=== PATIENT | female | born 1950 | race Caucasian/White ===

== ENCOUNTER → 2019-11-23 10:26 | Outpatient (CLI) | payer MEDICARE, SELFPAY ==
--- NOTE | ~2019-11-23 | CT_ITS ---
EXAMINATION: CT abdomen pelvis wo/w con DATE: 11/23/2019 11:03 INDICATION: Kidney cancer; restaging TECHNIQUE: Computed tomography (CT) of the abdomen and pelvis was performed without and subsequently with 100 cc Omnipaque 350 intravenous contrast. Automated exposure control and iterative reconstructi on technique were employed. Exam dose: 620.25 mGy-cm total exam DLP. COMPARISON: 11/19/2018 CT abdomen pelvis FINDINGS: Right lower lobe calcified pulmonary granulomas and minimal hepatic and multiple calcified splenic granulomas, consistent with old granulomatous disease. Normal heart size. No pericardial or pleural effusion. There is mild prominence of the bile ducts, secondary to cholecystectomy. No hepatic, splenic, pancre atic, adrenal or renal mass lesion is evident. Status post partial nephrectomy the lower pole of the left kidney for history of renal cancer. No janet al space-occupying mass lesion is evident. There is a small nonobstructing lower pole right renal chris culus. No hydroureteronephrosis. There is atherosclerotic calcification of the abdominal aorta and iliac and femoral arteries but no a neurysm. No intraperitoneal or retroperitoneal or pelvic mass lesion or adenopathy or ascites is dete cted. The urinary bladder is unremarkable. Status post hysterectomy. There is a prominent amount of fecal material within the colon. No bowel obstruction or intraperitone al free air is detected. There is partial left nephrectomy at the lower pole of the left kidney. There is a small nonobstructing lower pole right renal calculus. Status post posterior fusion by pedicle screws and rods at L4-S1 and interbody spinal fusion and grad e 1 anterolisthesis at L5-S1. IMPRESSION: Status post partial left mastectomy for renal cancer; no recurrence or metastatic diseas e is evident Small nonobstructing lower pole right renal calculus Old granulomatous disease Status post cholecystectomy Status post hysterectomy Reviewed, dictated and finalized at [facility]. Reviewed, dictated and finalized at location B. IMPRESSION: Status post partial left mastectomy for renal cancer; no recurrenc e or metastatic disease is evident Small nonobstructing lower pole right renal calculus Old granulomatous disease Status post cholecystectomy Status post hysterectomy
--- NOTE | ~2019-11-23 | XR_ITS ---
XR chest 2V 11/23/2019 11:03 Indication: Renal cell carcinoma. Procedure: 2 view chest Comparison: Comparison to multiple prior studies sequentially, with oldest reviewed study dated 03/2016. Findings: Heart size normal. No focal air space disease, pulmonary edema, pleural effusion or suspect ed pneumothorax. Calcified granulomas right mid and lower thorax. Impression: 1: No acute cardiopulmonary disease. Reviewed, dictated and finalized at location A. Impression: 1: No acute cardiopulmonary disease.
[2019-11-23 10:50] LABS: Estimated Glomerular Filt Rate > 60
== END ==
PROVIDERS: PCP Internal Medicine; Visit Provider Urology
DX: C64.9 Malignant neoplasm of unspecified kidney, except renal pelvis (principal); N20.0 Calculus of kidney; Z90.49 Acquired absence of other specified parts of digestive tract
CPT/HCPCS: 36415; 71046; 74178; Q9967

== ENCOUNTER 2020-04-01 08:59 | Outpatient (CLI) | payer MEDICARE, SELFPAY ==
[2020-04-01 09:11] LABS: Basophils Absolute Auto 0.05 K/mm3 (0.00-0.10); Basophils Percent Auto 0.7 % (0.0-1.0); Eosinophils Absolute Auto 0.17 K/mm3 (0.02-0.50); Eosinophils Percent Auto 2.2 % (1.0-6.0); Hematocrit 44.8 % (35.0-42.0); Hemoglobin 14.3 g/dL (11.7-13.8); Immature Granulocyte Absolute 0.02 K/mm3 (0.00-0.00); Immature Granulocyte Percent A 0.3 % (0.0-0.0); Lymphocytes Absolute Auto 2.19 K/mm3 (1.10-4.50); Lymphocytes Percent Auto 28.7 % (18.0-42.0); Mean Corpuscular HGB Conc 31.9 g/dL (32.0-36.0); Mean Corpuscular Hemoglobin 29.7 pg (27.0-31.0); Mean Corpuscular Volume 92.9 fL (78.0-102.0); Mean Platelet Volume 10.3 fl (9.2-11.8); Monocytes Absolute Auto 0.66 K/mm3 (0.10-0.90); Monocytes Percent Auto 8.7 % (2.0-11.0); Neutrophils Absolute Auto 4.5 K/mm3 (1.7-7.2); Neutrophils Percent Auto 59.4 % (50.0-70.0); Platelet Count Result 229 K/mm3 (150-420); Red Blood Count 4.82 M/mm3 (4.20-5.40); Red Cell Distribution Width 12.3 % (11.6-14.4); White Blood Count 7.6 K/mm3 (4.8-10.8)
[2020-04-01 09:57] LABS: Alanine Aminotransferase 18 U/L (14-59); Albumin Level 4.2 g/dL (3.4-5.0); Alkaline Phosphatase 42 U/L (46-116); Anion Gap 12.2 mmol/L (7-16); Aspartate Amino Transferase 16 U/L (15-37); Bilirubin,Total 0.4 mg/dL (0.00-1.00); Blood Urea Nitrogen 13 mg/dL (7-18); Calcium 9.4 mg/dL (8.5-10.1); Carbon Dioxide 31 mmol/L (21-32); Chloride 104 mmol/L (98-108); Cholesterol 174 mg/dL (0-200); Estimated Glomerular Filt Rate 47; Free T4 Free Thyroxine 1.36 ng/dL (0.76-1.46); Glucose 98 mg/dL (70-99); HDL Direct 59 mg/dL (40-60); LDL Cholesterol Calculated 97 mg/dL (<130); Osmolality Calculated 294 mOsm/kg (285-295); Potassium 5.2 mmol/L (3.5-5.1); Sodium 142 mmol/L (136-145); Thyroid Stimulating Hormone 2.56 uIU/mL (0.36-3.74); Total Protein 6.9 g/dL (6.4-8.2); Triglycerides 91 mg/dL (0-150)
== END 2020-04-01 09:00 | disposition home or self-care (01) ==
LOC: CHSLAB 09:03
PROVIDERS: PCP Internal Medicine; Visit Provider Internal Medicine
DX: I10 Essential (primary) hypertension (principal)
CPT/HCPCS: 36415; 80053; 80061; 84439; 84443; 84481; 85025

== ENCOUNTER 2020-04-01 09:22 | Outpatient (CLI) | payer SELFPAY ==
--- NOTE | ~2020-04-01 | XR_ITS ---
XR lumbar spine 2-3V DATE: 04/01/2020 09:43 INDICATION: Chronic back pain TECHNIQUE: AP, lateral, coned lateral lumbosacral views COMPARISON: 09/29/2007 lumbar spine MRI examination FINDINGS: Interval bilateral posterior spinal fusion including bilateral pedicle screws at L4-S1 sinc e 09/29/2007. Interbody spinal fusion at L5-S1 is again noted. Grade 1 anterolisthesis at L5-S1 is again noted. No fracture or bone destruction is evident. The included lower thoracic and lumbar pedicles are intac t. The sacroiliac joints are unremarkable. IMPRESSION: Interval bilateral posterior spinal fusion including bilateral pedicle screws at L4-S1 si nce 09/29/2007 Interbody spinal fusion and grade 1 anterolisthesis at L5-S1 are again noted Reviewed, dictated and finalized at location A. IMPRESSION: Interval bilateral posterior spinal fusion including bilateral pedi monika screws at L4-S1 since 09/29/2007 Interbody spinal fusion and grade 1 anterolisthesis at L5-S1 are again noted
== END 2020-04-01 09:23 | disposition home or self-care (01) ==
PROVIDERS: PCP Family Medicine; Visit Provider Family Medicine
DX: M54.89 Other dorsalgia (principal)
CPT/HCPCS: 72100

== ENCOUNTER 2020-12-14 09:57 | Outpatient (CLI) | payer MEDICARE, SELFPAY ==
--- NOTE | 2020-12-14 12:10 | WPDPFTINT ---
PFT Interpretation This is a pulmonary function test with spirometry, plethysmography and diffusing capacity. The test was performed and results interpreted in accordance with the 2019 and 2005 ATS/ERS Task Force guidelines respectively using the Global Lung Function Initiative-2012 reference equations. Patient demonstrated good effort and cooperation. Reproducibility criteria were met. The quality of the pre bronchodilator spirometry maneuver was Grade B. Findings: Spirometry: The contour of the inspiratory and expiratory flow tracing are normal. The FVC is 2.77 L, 87% predicted. The FEV1 is 1.93 L, 79% predicted. The FEV1: FVC ratio 70%. Plethysmography: The total lung capacity is 5.61 L, 102% predicted. The functional residual capacity is 3.53 L, 112% predicted. The residual volume is 2.72 L, 117% predicted. Diffusing capacity: The absolute diffusion capacity is 12.6, 58% predicted. The diffusing capacity corrected for alveolar volume is 2.92, 70% predicted. Impression: The spirometry is normal without evidence of an obstructive abnormality. The lung volumes are normal. The absolute diffusing capacity is moderately decreased and normalizes when corrected for alveolar volume. There are no prior studies for comparison PFT Procedure Performed PFT Procedure Performed Plethysmography (Lung Vol) Diffusing Cap (DLCO) Spirometry w/o Bronchodil
== END 2020-12-14 09:58 | disposition home or self-care (01) ==
LOC: ANHPFT 09:59
PROVIDERS: PCP Internal Medicine; Visit Provider Internal Medicine
DX: J44.9 Chronic obstructive pulmonary disease, unspecified (principal)
CPT/HCPCS: 94375; 94726; 94729

== ENCOUNTER → 2021-01-18 09:33 | Outpatient (CLI) | payer MEDICARE, SELFPAY ==
--- NOTE | ~2021-01-18 | XR_ITS ---
EXAMINATION: XR chest 2V DATE: 01/18/2021 09:56 INDICATION: History of kidney cancer, prior tobacco use TECHNIQUE: PA and lateral views of the chest are obtained. COMPARISON: 11/23/2019 FINDINGS: The lungs are free of acute opacities. Calcified nodules of the right lung are consistent w ith old granulomatous disease. There is no pleural effusion or pneumothorax. The cardiomediastinal si lhouette is normal. There is mild thoracic spondylosis. Punctate calcifications of the left upper marco drant likely reflect healed granulomatous disease of the spleen. IMPRESSION: 1. No acute cardiopulmonary abnormality. Reviewed, dictated and finalized at location A.
== END ==
PROVIDERS: Visit Provider Urology
DX: C64.9 Malignant neoplasm of unspecified kidney, except renal pelvis (principal)
CPT/HCPCS: 71046

== ENCOUNTER → 2021-01-25 10:19 | Outpatient (CLI) | payer MEDICARE, SELFPAY ==
--- NOTE | ~2021-01-25 | CT_ITS ---
EXAMINATION: CT abdomen pelvis wo/w con DATE: 01/25/2021 11:09 INDICATION: Kidney cancer, status post partial left nephrectomy TECHNIQUE: Computed tomography (CT) of the abdomen and pelvis was performed without and subsequently with 100 cc Omnipaque 350 intravenous contrast. Automated exposure control and iterative reconstructi on technique were employed. Exam dose: 608.64 mGy-cm total exam DLP. COMPARISON: 12/03/2019 CT abdomen pelvis FINDINGS: 8.7 x 13 x 30 mm soft tissue opacity at the lateral right lung base adjacent a prominent ch ronic calcified right lower lobe pulmonary granuloma. Differential diagnosis includes primary lung ca ncer, metastatic lesion versus focal atelectasis//or consolidation. Consider PET/CT imaging. The lung bases are otherwise clear. Normal heart size. No pericardial or pleural effusion. Status post cholecystectomy. This likely accounts for mild prominence of the intrahepatic and extrahe patic bile ducts. No pancreatic duct dilatation. No hepatic, splenic, pancreatic, adrenal or renal space-occupying mass lesion is evident. Multiple ca lcified splenic granulomas. Left lower pole partial nephrectomy. Pinpoint lower pole right nonobstructing renal calculus. No renal mass lesion is evident. The urinary bladder is unremarkable. Status post hysterectomy. Abdominal aortic calcification; no abdominal aortic aneurysm. No intraperitoneal or retroperitoneal or pelvic mass lesion or adenopathy or ascites. Mild colonic diverticulosis There are some small and large bowel air-fluid levels suggesting possible enterocolitis. Status post posterior spinal fusion at L4-S1 interbody spinal fusion at L5-S1. There is grade 1 anter olisthesis at L5-S1. No suspicious osteolytic or osteoblastic lesions are noted. IMPRESSION: 8.7 x 13 x 30 mm soft tissue opacity of the lateral right lung base; diffusion diagnosis includes primary and metastatic lung malignancy versus atelectasis or consolidation. Consider PET/CT imaging Status post partial left nephrectomy for history of renal cancer Status post cholecystectomy Status post hysterectomy Pinpoint nonobstructing lower pole right renal calculus Reviewed, dictated and finalized at [facility]. Reviewed, dictated and finalized at location A. IMPRESSION: 8.7 x 13 x 30 mm soft tissue opacity of the lateral right lung bas e; diffusion diagnosis includes primary and metastatic lung malignancy versus a telectasis or consolidation. Consider PET/CT imaging Status post partial left nephrectomy for history of renal cancer Status post cholecystectomy Status post hysterectomy Pinpoint nonobstructing lower pole right renal calculus
[2021-01-25 10:54] LABS: Estimated Glomerular Filt Rate > 60
== END ==
PROVIDERS: PCP Internal Medicine; Visit Provider Urology
DX: C64.9 Malignant neoplasm of unspecified kidney, except renal pelvis (principal); K57.30 Diverticulosis of large intestine without perforation or abscess without bleeding; Z90.49 Acquired absence of other specified parts of digestive tract; Z90.5 Acquired absence of kidney
CPT/HCPCS: 74178; Q9967

== ENCOUNTER 2021-02-16 10:30 | Outpatient (CLI) | payer MEDICARE, SELFPAY ==
--- NOTE | ~2021-02-16 | PE_ITS ---
EXAMINATION: PET skull to mid thigh DATE: 02/16/2021 12:20 INDICATION: Abnormal CT with nodular opacity right lung base. TECHNIQUE: Blood glucose level was 86 mg/dL. 10.53 mCi of 18-fluorodeoxyglucose (18-FDG) was administ ered i.v. Low dose computed tomography (CT) images were acquired from the base of the brain to the pr oximal thighs for attenuation correction and anatomic localization. Positron emission tomography (PET ) images were acquired in the same distribution beginning 56 minutes after injection. Images includin g fused PET/CT images were reconstructed in axial, coronal, and sagittal planes. Automated exposure c ontrol technique was employed. The dose-length product was 305.08mGy-cm. COMPARISON: CT abdomen and pelvis dated 01/25/2021 FINDINGS: Head/neck: There is symmetric increased activity in the oral cavity, submandibular glands, laryngeal muscles an d ocular muscles without CT correlate, likely physiologic. Small focus of mild increased FDG uptake a t the right thyroid lobe with maximal SUV of 2.9. No pathologically enlarged cervical lymphadenopathy or other suspicious foci of increased FDG uptake in the visualized head or neck. Chest: Mild increased FDG uptake with maximal SUV of 3.2 associated with the oblong 2.5 x 1.5 x 1.2 cm nodul ar soft tissue density in the right lower lobe extending caudally from a large calcified nodule bladd er likely sequela of old granulomatous disease. No other suspicious pulmonary nodules, pneumonia, pul monary edema or pleural effusion. Heart size is normal. Small amount of scattered atherosclerotic cor onary artery calcification. No pericardial effusion. Thoracic aorta is normal in caliber. A few calci fied right hilar lymph nodes consistent with old granulomatous disease. No FDG avid or pathologically enlarged thoracic lymphadenopathy. Abdomen/pelvis/proximal thighs: Physiologic renal accumulation and excretion of FDG activity in the kidneys, bladder and along portio ns of ureters. Suture line and cortical scarring at the medial aspect of the lower pole of the left k idney likely representing the site of a prior partial nephrectomy for reported renal cell carcinoma. Normal degree and heterogenous pattern of increased uptake throughout the liver without radiologic co rrelate or dominant FDG avid lesion. Small hepatic calcification and multiple splenic calcifications consistent with old granulomatous disease. The gallbladder is not visualized and likely surgically ab sent. Pancreas and bilateral adrenal glands are normal. Mild uptake scattered throughout the bowels w ithout radiologic correlate, also likely physiologic. There is mild colonic diverticulosis with a sig moid predominance. There is no adjacent inflammatory change to suggest diverticulitis. No other abn ormal foci of increased FDG uptake or pathologically enlarged lymphadenopathy in the abdomen, pelvis or proximal thighs. Musculoskeletal: Postoperative changes of prior L5 laminectomy, partial L4 laminectomy, L4-S1 posterior spinal fusion with bilateral vertical gregorio and pedicle screw fixation and L5-S1 anterior spinal fusion with interbod y bone graft cage. Bone graft harvest site is seen at the right posterior iliac spine. No suspicious lytic, blastic or FDG avid bone lesions. IMPRESSION: 1. Mild increased FDG uptake associated with a 2.5 x 1.5 x 1.2 cm oblong nodular soft tissue density in the lateral basilar segment of the right lower lobe. Although this could represent inflammation as sociated with a bronchocele secondary to old granulomatous disease, malignancy cannot be excluded and would recommend CT-guided percutaneous biopsy for further evaluation. 2. Small focus of mild increased uptake at the right thyroid lobe and could consider thyroid ultrasou nd for further evaluation/risk stratification. Reviewed, dictated and final
[2021-02-16 10:56] LABS: Glucose Point of Care 86 mg/dl (65-105)
== END 2021-02-16 10:31 | disposition home or self-care (01) ==
PROVIDERS: PCP Internal Medicine; Visit Provider Internal Medicine
DX: R91.8 Other nonspecific abnormal finding of lung field (principal); Z51.81 Encounter for therapeutic drug level monitoring; Z79.899 Other long term (current) drug therapy
CPT/HCPCS: 78815; 82948; A9552

== ENCOUNTER → 2021-02-24 03:35 | Outpatient (CLI) | payer MEDICARE, SELFPAY ==
[2021-02-24 19:50] LABS: SARS-CoV-2 RNA PCR Negative
== END ==
PROVIDERS: PCP Internal Medicine; Visit Provider Internal Medicine
DX: Z01.812 Encounter for preprocedural laboratory examination (principal); Z20.822 Contact with and (suspected) exposure to COVID-19
CPT/HCPCS: C9803; U0003; U0005

== ENCOUNTER 2021-02-24 13:17 | Outpatient (CLI) | payer MEDICARE, SELFPAY ==
--- NOTE | ~2021-02-24 | US_ITS ---
US thyroid INDICATION: Thyroid nodule. Mild uptake noted in right thyroid gland on recent PET/CT examination. TECHNIQUE: Real-time sonographic images of the thyroid gland were obtained. COMPARISON: Pet/CT dated 02/16/2021 FINDINGS: The right thyroid lobe measures 2.8 x 1 x 0.9 cm. The left thyroid lobe measures 2.3 x 0.6 x 0.4 cm. Thyroid echotexture is heterogeneous. There is a small hyperechoic mass in the right thyro id lobe measuring 5 x 4 x 2 mm which is solid, hypoechoic, wider than tall, smooth margins and no def inite calcifications, TR 3.. Normal vascular flow is present. IMPRESSION: 1. 5 mm right thyroid mass, likely benign. 2: Diffusely atrophic thyroid gland. Reviewed, dictated and finalized at location B.
== END 2021-02-24 13:18 | disposition home or self-care (01) ==
PROVIDERS: PCP Internal Medicine; Visit Provider Internal Medicine
DX: E04.1 Nontoxic single thyroid nodule (principal)
CPT/HCPCS: 76536; C9803; U0003; U0005

== ENCOUNTER 2021-03-01 08:41 | Outpatient (CLI) | payer MEDICARE, SELFPAY ==
[2021-02-28 09:26] VITALS: BMI 28.6
[2021-03-01] VITALS (10 sets, daily range): BP systolic 117–151; BP diastolic 64–104; PULSE 63–79; RESP 19–20; O2SAT 100
--- NOTE | ~2021-03-01 | XR_ITS ---
EXAMINATION: XR chest 1V portable DATE: 03/01/2021 13:10 INDICATION: Status post percutaneous right lung biopsy TECHNIQUE: frontal view of the chest was obtained. COMPARISON: Chest radiograph dated 03/01/2021 at 11:56 AM FINDINGS: The biopsied right lower lobe nodule is visible at the right costophrenic angle. Couple calcified nod ules in the right lower lung, calcified right hilar lymph nodes and multiple splenic calcifications a re all consistent with old granulomatous disease. No other airspace opacities, pulmonary edema, pleur al effusion or pneumothorax. The cardiomediastinal silhouette is normal. Distal right clavicular oste otomy. IMPRESSION: 1. No pneumothorax, pleural effusion or other acute cardiopulmonary disease post percutaneous biopsy of an indeterminate right lower lobe nodule. Reviewed, dictated and finalized at location A. IMPRESSION: 1. No pneumothorax, pleural effusion or other acute cardiopulmonary disease pos t percutaneous biopsy of an indeterminate right lower lobe nodule.
--- NOTE | ~2021-03-01 | XR_ITS ---
EXAMINATION: XR chest 1V DATE: 03/01/2021 12:00 INDICATION: Right lung nodule post percutaneous biopsy TECHNIQUE: frontal view of the chest was obtained. COMPARISON: Chest radiograph dated 01/18/21 FINDINGS: Calcified nodules in the right lung along with calcified right hilar lymph nodes and multiple splenic calcifications, all consistent with old granulomatous disease. The biopsied nodule is nearly indisce rnible is a subtle nodular opacity near the right costophrenic angle. No pleural effusion or pneumoth orax. The cardiomediastinal silhouette is normal. Postoperative change of prior distal right clavicle osteotomy. IMPRESSION: 1. No pneumothorax, pleural effusion or other acute cardiopulmonary disease post BX scans biopsy of a right lower lobe nodule. Reviewed, dictated and finalized at location A. IMPRESSION: 1. No pneumothorax, pleural effusion or other acute cardiopulmonary disease pos t BX scans biopsy of a right lower lobe nodule.
--- NOTE | ~2021-03-01 | XR_ITS ---
XR chest 1V portable 03/01/2021 15:04 Indication: Post image guided lung biopsy. Evaluate for pneumothorax. Procedure: AP portable chest Comparison: 03/01/2021 Findings: Small right apical pneumothorax. Calcified granulomas right lung. Heart size normal. No foc al pneumonia, edema or effusion. Impression: 1: Small right apical pneumothorax. Reviewed, dictated and finalized at location A. Impression: 1: Small right apical pneumothorax.
--- NOTE | ~2021-03-01 | CT_ITS ---
EXAMINATION: CT biopsy lung w/imaging DATE: 03/01/2021 12:01 INDICATION: Right lower lobe nodule. TECHNIQUE: The procedure including the risks and benefits was discussed with the patient. Risks discu ssed included infection, approximately 1/20 risk of symptomatic hemorrhage beyond mild hemoptysis, ap proximately 1/3 risk of pneumothorax, and approximately 1/10 risk of pneumothorax severe enough to wa rrant chest tube placement. The patient understood the risks and agreed to proceed. The patient was p laced prone. The skin overlying the posterior right lower chest was prepped and draped in sterile fa shion. Anesthetic was administered with 1% lidocaine subcutaneously. A 19 gauge outer needle was ad vanced under CT guidance to the lesion of interest. A 20 gauge core biopsy needle was then used to ob tain 6 core biopsy specimens. The needle was removed and the entry site was cleaned and dressed. The re were no immediate complications. No pneumothorax on the postprocedure chest radiograph. The dose-l ength product was 163.89 mGy-cm. FINDINGS: CT images demonstrate the outer needle tip adjacent to an elongated right lower lobe nodule . The nodule measures 12 mm in maximal transaxial dimensions and extending 2.2 cm craniocaudally. IMPRESSION: 1. Successful CT-guided biopsy of a 2.2 x 1.2 cm right lower lobe nodule. Reviewed, dictated and finalized at location A.
[2021-03-01 09:17] LABS: Basophils Absolute Auto 0.1 K/mm3 (0.0-0.1); Basophils Percent Auto 0.8 % (0.2-1.2); Eosinophils Absolute Auto 0.2 K/mm3 (0-0.3); Eosinophils Percent Auto 2.6 % (0-4.4); Hemoglobin 14.2 g/dL (12.0-15.0); Immature Granulocyte Absolute 0.02 K/mm3 (0.00-0.031); Immature Granulocyte Percent A 0.3 % (0-0.5); Lymphocytes Absolute Auto 2.31 K/mm3 (0.9-3.2); Lymphocytes Percent Auto 37.2 % (18.3-44.2); Mean Corpuscular HGB Conc 30.9 g/dl (32-36); Mean Corpuscular Hemoglobin 28.7 pg (26-34); Mean Corpuscular Volume 93.1 fl (80-100); Mean Platelet Volume 10.1 fl (7.4-10.4); Monocytes Absolute Auto 0.6 K/mm3 (0.1-0.6); Monocytes Percent Auto 9.8 % (2.6-8.5); Neutrophils Absolute Auto 3.1 K/mm3 (1.3-6.7); Neutrophils Percent Auto 49.3 % (45.5-73.1); Platelet Count Result 215 k/mm3 (150-375); Red Blood Count 4.94 M/mm3 (4.2-5.4); Red Cell Distribution Width 12.6 % (11.5-14.5); White Blood Count 6.2 K/mm3 (4.5-10.0)
[2021-03-01 09:23] LABS: INR 0.9; Prothrombin Time 12.9 Seconds (11.1-14.7)
--- NOTE | 2021-03-01 16:21 | SUR.PHASEII ---
1610 - dr. mobley at bedside talking with pt and pt's family.
== END 2021-03-01 16:22 | disposition home or self-care (01) ==
PROVIDERS: Radiology Diagnostic Radiology; PCP Internal Medicine; Visit Provider Internal Medicine
DX: R91.8 Other nonspecific abnormal finding of lung field (principal)
CPT/HCPCS: 32408; 36415; 71045; 85025; 85610; 88305

== ENCOUNTER 2021-05-16 10:11 | Outpatient (CLI) | payer MEDICARE, SELFPAY | END 2021-05-16 10:12 | disposition home or self-care (01) | LOC: CHSLAB 10:15 | PROVIDERS: PCP Internal Medicine; Visit Provider Specialist | DX: C44.222 Squamous cell carcinoma of skin of right ear and external auricular canal (principal) | CPT/HCPCS: 88305 ==

== ENCOUNTER 2022-01-09 12:16 | Outpatient (CLI) | payer MEDICARE, SELFPAY ==
--- NOTE | ~2022-01-09 | DEXA_ITS ---
Bone Density Report Name: HAILE FALL Age: 71 Sex: Female Ethnicity: White Date of : 1950 Indication: postmenopausal; screening for osteoporosis; height loss; prior fracture; hysterectomy; Referring Provider: Sotero Alicea Study: Bone densitometry was performed. Exam Date: January 09, 2022 Accession number: [id number] Bone Density: Region BMD T-score Z-score Classification Femoral Neck (Left) 0.845 0.0 1.8 Normal Total Hip (Left) 0.934 -0.1 1.5 Normal Femoral Neck (Right) 0.817 -0.3 1.5 Normal Total Hip (Right) 0.874 -0.6 1.0 Normal Femoral Neck Mean 0.831 -0.2 1.7 Normal Total Hip Mean 0.904 -0.3 1.2 Normal World Health Organization criteria for BMD impression classify patients as: Normal (T-score at or above -1.0), Osteopenia (T-score between -1.0 and -2.5), or Osteoporosis (T-score at or below -2.5). 10-year Fracture Risk: FRAX not reported because: All T-scores for Spine Total, Hip Total, Femoral Neck at or above -1.0 Prior hip or vertebral fracture Clinical Information Provided by Patient: Have had a previous hip or vertebral fracture Has had a low trauma fracture Has used the following medications: HRT (i.e. estrogen/hormone therapy), Vitamin D Has the following medical conditions: Hysterectomy Patient maximum height was 67 Menopause Age: 51 No regular weight bearing exercise Drinks caffeinated beverages Onset of menses at age 13 Number of children 2 Impression: The patient has normal bone mass. The patient has risk factors, including: previous fracture. Discussion: INCREASED RISK OF FRACTURE DUE TO HISTORY OF FRACTURE. The patient's previous fracture puts the patient at high risk of a future fracture. In untreated patients, the risk of osteoporotic fracture increases approximately two-fold for each 1.0 SD decrease in T-score. Low bone density is not the only risk factor for fracture; also consider factors such as patient's age, frailty or poor health, risk of falling, risk of injury, previous osteoporotic fracture, family history of osteoporosis, cigarette smoking, low body weight, etc. Not everyone with a low trauma fracture has osteoporosis; osteomalacia and other metabolic bone disorders should also be considered. Patients who have osteoporosis should be evaluated for specific diseases and conditions (secondary causes) that may cause or contribute to bone loss and fracture risk. National Osteoporosis Foundation (NOF) recommends pharmacologic intervention for patients with a prior hip or vertebral fracture regardless of BMD T-score. The patient should follow a healthful lifestyle (good nutrition with adequate calcium and vitamin D, and appropriate weight-bearing exercise). Follow-Up: Consider a repeat BMD and Vertebral Fracture Assessment (VFA) exam in 2 years or
== END 2022-01-09 12:17 | disposition home or self-care (01) ==
LOC: CHSIMG 12:17
PROVIDERS: PCP Internal Medicine; Visit Provider Obstetrics & Gynecology
DX: Z78.0 Asymptomatic menopausal state (principal)
CPT/HCPCS: 77080

== ENCOUNTER → 2022-01-18 09:39 | Outpatient (CLI) | payer MEDICARE, SELFPAY ==
--- NOTE | ~2022-01-18 | CT_ITS ---
EXAMINATION: CT abdomen pelvis wo/w con DATE: 01/18/2022 10:23 INDICATION: Cancer of kidney, history of partial left nephrectomy TECHNIQUE: Computed tomography (CT) of the abdomen was performed without intravenous contrast. CT of the abdomen and pelvis was then performed with a total of 100 mL Omnipaque 350 intravenous contrast. The dose-length product (DLP) was 713.02 mGy-cm. Automated exposure control and iterative reconstruct ion technique were employed. COMPARISON: 01/25/2021 FINDINGS: Minimal dependent atelectasis is present in the lung bases. There is a stable calcified nod ule of the right lower lobe. The heart size is normal. The gallbladder is surgically absent. There is mild enlargement of the common bile duct and central intrahepatic ducts which is likely due to post cholecystectomy state. Punctate calcifications in an otherwise normal spleen likely represent healed granulomatous disease. There are changes of partial nephrectomy in the lower pole of the left kidney. No residual or recurrent mass is identified. No suspicious renal or urothelial lesion is identified. A large volume of colonic stool is present. No pathologically enlarged abdominal or pelvic lymph nod es are identified. There is no free intraperitoneal gas or evidence of bowel obstruction. There is ca lcified atherosclerosis of the aorta and many of the other arteries. Surgical changes are noted in th e lumbar spine. IMPRESSION: 1. Status post left partial nephrectomy without residual or recurrent mass identified. Reviewed, dictated and finalized at location B. IMPRESSION: 1. Status post left partial nephrectomy without residual or recurrent mass iden tified.
--- NOTE | ~2022-01-18 | XR_ITS ---
EXAMINATION: XR chest 2V DATE: 01/18/2022 10:03 INDICATION: Cancer of kidney. TECHNIQUE: Frontal and lateral views of the chest were obtained. COMPARISON: Chest single view 03/01/2021, CT abdomen and pelvis 01/18/2022 FINDINGS: Calcified right lung nodules are consistent with old granulomatous disease. No pleural effu declan or pneumothorax. The heart size is normal. IMPRESSION: 1. No acute cardiopulmonary disease. Reviewed, dictated and finalized at location A.
[2022-01-18 10:09] LABS: Estimated Glomerular Filt Rate > 60
== END ==
PROVIDERS: PCP Internal Medicine; Visit Provider Urology
DX: C64.9 Malignant neoplasm of unspecified kidney, except renal pelvis (principal)
CPT/HCPCS: 71046; 74178; Q9967

== ENCOUNTER 2022-03-20 11:33 | Outpatient (CLI) | payer MEDICARE, SELFPAY | END 2022-03-20 11:34 | disposition home or self-care (01) | LOC: CHSLAB 11:45 | PROVIDERS: PCP Internal Medicine; Visit Provider Specialist | DX: L81.4 Other melanin hyperpigmentation (principal) | CPT/HCPCS: 88305 ==

== ENCOUNTER 2022-10-07 19:32 | Observation (INO) | payer MEDICARE, SELFPAY ==
--- NOTE | ~2022-10-07 | XR_ITS ---
Supine and upright views of the abdomen Clinical history: Nausea and vomiting Findings: Bowel gas pattern is nonspecific. No evidence for obstruction or free air. Calcified spleni c granulomas are noted in the left upper quadrant. Posterior orthopedic fixation hardware is present extending from L4 through S1.. Impression: Nonspecific bowel gas pattern. Calcified splenic granulomas. Lower lumbar spine fixation hardware. Reviewed, dictated and finalized at [facility]. ARD OPERATOR Impression: Nonspecific bowel gas pattern. Calcified splenic granulomas. Lower lumbar spine fixation hardware.
--- NOTE | ~2022-10-07 | XR_ITS ---
Portable chest x-ray Comparison: 01/18/2022 Clinical History: Fever Findings: Stable calcified granulomas in the right lung. Lungs are otherwise clear, without consolid ation or pleural effusion. Cardiomediastinal silhouette is stable. Bones and soft tissues are unrema rkable. Impression: No acute abnormality. Stable calcified right lung granulomas. Reviewed, dictated and finalized at [facility]. ER OPERATOR Impression: No acute abnormality. Stable calcified right lung granulomas.
[2022-10-07 19:36] VITALS: BP 126/72; PULSE 92; RESP 20; TEMP 36.8; O2SAT 99
[2022-10-07] MEDS: SODIUM CHLORIDE 0.9% IV 1,000 ML 999 ML IV CONT ×2 (19:59→21:01)
[2022-10-07] MEDS: ONDANSETRON INJ 4 MG/2 ML VIAL IV PUSH ×2 (19:59→21:34)
[2022-10-07 20:04] LABS: Glucose Point of Care 151 mg/dl (65-105)
[2022-10-07 20:50] VITALS: BP 109/70; BP 114/90; PULSE 95; PULSE 99; RESP 20; O2SAT 99
[2022-10-07 20:52] VITALS: BP 114/90; PULSE 110
[2022-10-07 20:56] LABS: Basophils Absolute Auto 0.03 K/mm3 (0.00-0.10); Basophils Percent Auto 0.3 % (0.0-1.0); Eosinophils Absolute Auto 0.02 K/mm3 (0.02-0.50); Eosinophils Percent Auto 0.2 % (1.0-6.0); Hematocrit 41.6 % (35.0-42.0); Hemoglobin 13.2 g/dL (11.7-13.8); Immature Granulocyte Absolute 0.03 K/mm3 (0.00-0.00); Immature Granulocyte Percent A 0.3 % (0.0-0.0); Lymphocytes Absolute Auto 0.47 K/mm3 (1.10-4.50); Lymphocytes Percent Auto 5.2 % (18.0-42.0); Mean Corpuscular HGB Conc 31.7 g/dL (32.0-36.0); Mean Corpuscular Hemoglobin 29.3 pg (27.0-31.0); Mean Corpuscular Volume 92.2 fL (78.0-102.0); Mean Platelet Volume 10.7 fl (9.2-11.8); Monocytes Absolute Auto 0.57 K/mm3 (0.10-0.90); Monocytes Percent Auto 6.3 % (2.0-11.0); Neutrophils Percent Auto 87.7 % (50.0-70.0); Platelet Count Result 189 K/mm3 (150-420); Red Blood Count 4.51 M/mm3 (4.20-5.40); Red Cell Distribution Width 12.4 % (11.6-14.4); White Blood Count 9.1 K/mm3 (4.8-10.8)
--- NOTE | 2022-10-07 20:56 | ED.GENADULT ---
HPI - General Adult General Chief complaint: Nausea/Vomiting/Diarrhea Stated complaint: Nausea/Vomiting/Diarrhea Source: patient and family Mode of arrival: ambulatory Limitations: no limitations History of Present Illness HPI narrative: 72-year-old white female complains of nausea vomiting and diarrhea that started last night she thinks she ate some bad chicken she has never had this before. Loose watery stools x5 today and has vomited before coming to the emergency department. While she was on the toilet having diarrheal stool she passed out for a couple seconds without injury. She felt dizzy and shaky. Denies any chest pain headache shortness of breath. denies any fever problems voiding rash itching bleeding or bruising. Past medical history chronic back pain for which she takes tramadol 3 times a day kidney cancer had part of her kidney removed successfully to cure her cancer. This was 5 years ago. With thyroidism. Insomnia. .........No history heart lung liver disease peptic ulcer disease or skin disease........... Past surgical history: Cholecystectomy, 3 back surgeries Related Data Home Medications Medication Instructions Recorded Confirmed buspirone 10 mg tablet 10 mg PO BID 11/23/20 10/07/22 levothyroxine 88 mcg capsule 88 mcg PO DAILY 11/23/20 10/07/22 tramadol 100 mg capsule 100 mg PO DAILY 11/23/20 10/07/22 24h,extended release(25-75) zolpidem 10 mg tablet 5 mg PO HS 11/23/20 10/07/22 biotin 5 mg capsule 5 mg PO DAILY 01/03/22 10/07/22 cholecalciferol (vitamin D3) 50 50 mcg PO DAILY 01/03/22 10/07/22 mcg (2,000 unit) capsule cyanocobalamin (vitamin B-12) 1,000 mcg PO DAILY 01/03/22 10/07/22 1,000 mcg capsule Allergies Allergy/AdvReac Type Severity Reaction Status Date / Time meperidine Allergy Unknown NAUSEA/VOMI Verified 06/20/22 13:17 TING morphine Allergy Unknown NAUSEA/VOMI Verified 06/20/22 13:17 TING Review of Systems Constitutional: Constitutional: Reports no additional constitutional complaints, Denies chills, Denies fatigue, Denies fever(s) and Denies weakness Eyes: Eyes: Reports no additional eye complaints ENT: Reports system reviewed and no additional complaints, except as documented Cardiovascular: Cardiovascular: Reports as per HPI, Reports no additional cardiovascular complaints and Denies chest pain Respiratory: Respiratory: Reports as per HPI, Reports no additional respiratory complaints, Denies chest congestion, Denies cough, Denies dyspnea and Denies wheezing Gastrointestinal: Gastrointestinal: Reports as per HPI and Reports no additional gastrointestinal complaints Genitourinary: Genitourinary: Reports no additional female genitourinary complaints and Reports as per HPI Musculoskeletal: Musculoskeletal: Reports no additional musculoskeletal complaints Integumentary/Breasts: Skin/Breast: Reports system reviewed and no additional complaints, except as docu and Denies rash Neurologic: Reports system reviewed and no additional complaints, except as documented, Reports as per HPI, Denies confusion, Reports dizziness, Reports syncope, Denies headache(s), Denies focal weakness, Denies numbness and Denies weakness Endocrine: Endocrine: Reports no additional endocrine complaints Hematologic/Lymphatic: Hematologic/Lymphatic: Reports no additional hematologic/lymphatic complaints Allergic/Immunologic: Allergic/Immunologic: Reports no additional allergic/immunologic complaints [facility] Past Medical History Medical History History of vaginal delivery x 2 Irritable bowel Renal cell cancer Thyroid disease Surgical History Surgical History History of abdominal hysterectomy History of appendectomy History of back surgery x 3 History of cholecystectomy History of partial nephrectomy left History of shoulder surgery Family History Family History
[2022-10-07 21:00] VITALS: BP 116/49; PULSE 90; RESP 20; O2SAT 96
[2022-10-07 21:12] LABS: Alanine Aminotransferase 11 U/L (14-59); Albumin Level 3.6 g/dL (3.4-5.0); Alkaline Phosphatase 51 U/L (46-116); Anion Gap 13 mmol/L (8-16); Aspartate Amino Transferase 17 U/L (15-37); Bilirubin,Total 0.6 mg/dL (0.00-1.00); Blood Urea Nitrogen 18 mg/dL (7-18); Calcium 8.4 mg/dL (8.5-10.1); Carbon Dioxide 25 mmol/L (21-32); Chloride 106 mmol/L (98-108); Estimated CRCL calculation 44 ml/min; Estimated Glomerular Filt Rate 53; Glucose 133 mg/dL (70-99); Lipase 28 U/L (16-77); Osmolality Calculated 301 mOsm/kg (285-295); Potassium 3.7 mmol/L (3.5-5.1); Sodium 144 mmol/L (136-145); Total Protein 6.5 g/dL (6.4-8.2)
[2022-10-07 21:30] VITALS: BP 142/95; PULSE 87; RESP 20; O2SAT 97
[2022-10-07 21:31] LABS: Thyroid Stimulating Hormone 1.96 uIU/mL (0.36-3.74)
[2022-10-07 21:33] LABS: Influenza A QL RT-PCR Negative (Negative); Influenza B QL RT-PCR Negative (Negative); SARS-CoV-2 RNA PCR Negative (Negative)
[2022-10-07 21:41] LABS: RSV RNA, RT-PCR Negative (Negative)
[2022-10-07 21:45] LABS: Add Urine Microscopic? YES; Bilirubin Urine Negative (Negative); Blood Urine Negative (Negative); Color Urine Light Yellow (Yellow); Glucose Urine UA Negative (Negative); Ketones Urine 1+ (Negative); Leukocyte Esterase Ur Trace LEU/UL (Negative); Nitrate Urine Negative (Negative); Protein Urine Negative (Negative); Specific Grav Ur 1.025 (1.010-1.020); Urobilinogen Urine 0.2 mg/dL (0.2-1.0)
[2022-10-07 22:02] LABS: Appearance Urine Slightly Cloudy (Clear); WBC Urine 0-3 /hpf (0-3)
[2022-10-07 22:03] LABS: Amorphous Sediment Urine Few; Mucus Urine Heavy /lpf; Uric Acid Crystals Urine Many /hpf
--- NOTE | 2022-10-07 22:48 | PC.NURSE ---
Pt resting on side, VSS, ERP DR Chandler talked c pt about lab results and UA. POC for admission discussed. Call placed to LOUISA Flores for Dr Chandler to discuss admission.
[2022-10-08] MEDS: KCL 20MEQ/0.9% SOD CHL 1,000 ML 120 ML IV CONT (00:39)
[2022-10-08 01:11] VITALS: BMI 22.6
--- NOTE | 2022-10-08 01:27 | PC.NURSE ---
Patient admitted to room 209 from the ER, is alert and oriented times 4, oriented to room and call light.
[2022-10-08 01:30] VITALS: BP 138/65; PULSE 95; RESP 14; TEMP 38.1; O2SAT 96
[2022-10-08 01:39] VITALS: TEMP 38.1
[2022-10-08] MEDS: ACETAMINOPHEN 325 MG TABLET 650 MG PO (01:39)
[2022-10-08] MEDS: ZOLPIDEM TARTRATE (*CRX) 5 MG TABLET 10 MG PO (01:40)
[2022-10-08 02:51] VITALS: TEMP 37.2
[2022-10-08 06:07] LABS: Hematocrit 36.7 % (35.0-42.0); Hemoglobin 11.7 g/dL (11.7-13.8); Mean Corpuscular HGB Conc 31.9 g/dL (32.0-36.0); Mean Corpuscular Hemoglobin 29.1 pg (27.0-31.0); Mean Corpuscular Volume 91.3 fL (78.0-102.0); Mean Platelet Volume 10.2 fl (9.2-11.8); Platelet Count Result 172 K/mm3 (150-420); Red Blood Count 4.02 M/mm3 (4.20-5.40); Red Cell Distribution Width 12.6 % (11.6-14.4); White Blood Count 5.9 K/mm3 (4.8-10.8)
[2022-10-08] MEDS: LEVOTHYROXINE SODIUM 88 MCG TABLET PO (06:07)
[2022-10-08 06:19] LABS: Anion Gap 7 mmol/L (8-16); Blood Urea Nitrogen 11 mg/dL (7-18); Calcium 7.9 mg/dL (8.5-10.1); Carbon Dioxide 26 mmol/L (21-32); Chloride 112 mmol/L (98-108); Estimated CRCL calculation 48 ml/min; Estimated Glomerular Filt Rate > 60; Glucose 96 mg/dL (70-99); Osmolality Calculated 299 mOsm/kg (285-295); Potassium 3.7 mmol/L (3.5-5.1); Sodium 145 mmol/L (136-145)
[2022-10-08 08:00] VITALS: BP 140/65; PULSE 96; RESP 16; TEMP 37.2; O2SAT 96
[2022-10-08] MEDS: CHOLECALCIFEROL 1,000 UNITS TABLET 2000 UNITS PO (08:51)
[2022-10-08] MEDS: busPIRone HCL 5 MG TABLET 10 MG PO (08:52)
[2022-10-08] MEDS: CYANOCOBALAMIN 1,000 MCG TABLET 1000 MCG PO (08:52)
[2022-10-08] MEDS: SODIUM CHLORIDE 0.9% IV 1,000 ML 75 ML IV CONT (08:57)
--- NOTE | 2022-10-08 10:59 | PM.SD2 ---
Same Day Admit/Disch: HPI History of Present Illness Chief complaint: dehydration/gastroenteritis Narrative: Ivanna Munoz is a 72 year old female History of Present Illness HPI narrative: ? 72-year-old white female complains of nausea vomiting and diarrhea that started last night she thinks she ate some bad chicken she has never had this before.? Loose watery stools x5 today and has vomited before coming to the emergency department.? While she was on the toilet having diarrheal stool she passed out for a couple seconds without injury.? She felt dizzy and shaky.? Denies any chest pain headache shortness of breath.? ? denies any fever problems voiding rash itching bleeding or bruising. ? Past medical history chronic back pain for which she takes tramadol 3 times a day kidney cancer had part of her kidney removed successfully to cure her cancer.? This was 5 years ago.? With thyroidism.? Insomnia. .........No history? heart lung liver disease peptic ulcer disease or skin disease........... Past surgical history: Cholecystectomy, 3 back surgeries [facility] Past Medical History Medical History History of vaginal delivery x 2 Irritable bowel Renal cell cancer Thyroid disease Surgical History Surgical History History of abdominal hysterectomy History of appendectomy History of back surgery x 3 History of cholecystectomy History of partial nephrectomy left History of shoulder surgery Family History Family History Father Family history of lung cancer Mother Family history of lung cancer Social History Social History Smoking status: Never smoker Second hand tobacco smoke exposure: No Smoking end date: 09/16/87 Alcohol intake: never Substance use: never Substance use type: does not use Lack of Transportation: No Lack of Food: Never True Current Housing: I Have Housing Concerned About Future Housing: No Difficulty Paying Gas/Electric Bills: No Difficulty Paying for Meds: No Currently Unemployed: No Education: High School Diploma/GED Difficulty w/ Childcare or Family Care: No Living arrangements: with family Spiritual care concerns: No Same Day Admit/Disch: Med Pre-admit Medications Home Medications Medication Instructions Recorded Confirmed Type buspirone 10 mg tablet 10 mg PO BID 11/23/20 10/07/22 History levothyroxine 88 mcg capsule 88 mcg PO DAILY 11/23/20 10/07/22 History tramadol 100 mg capsule 100 mg PO DAILY 11/23/20 10/07/22 History 24h,extended release(25-75) zolpidem 10 mg tablet 5 mg PO HS 11/23/20 10/07/22 History biotin 5 mg capsule 5 mg PO DAILY 01/03/22 10/07/22 History cholecalciferol (vitamin D3) 50 50 mcg PO DAILY 01/03/22 10/07/22 History mcg (2,000 unit) capsule cyanocobalamin (vitamin B-12) 1,000 mcg PO DAILY 01/03/22 10/07/22 History 1,000 mcg capsule ciprofloxacin HCl 500 mg tablet 500 mg PO Q12H #10 tabs 10/08/22 Rx (Cipro) ondansetron 4 mg disintegrating 4 mg PO Q8H PRN nausea and 10/08/22 Rx tablet vomiting #10 tabs Exam Narrative: GENERAL:Well-appearing, well-nourished, and in no acute distress. HEAD:Normocephalic, atraumatic. EYES: PERRLA and EOMI. ENT: Nares clear, no rhinorrhea or epistaxis. Mucous membranes moist. NECK: Supple. CHEST: Clear to auscultation. No respiratory distress. HEART: Regular rate and rhythm. No murmur heard. Normal peripheral pulses. ABDOMEN: Soft, nontender, nondistended, normal active bowel sounds. EXTREMITIES: Normal range of motion. No edema. SKIN: Warm, dry, no rash. NEURO: No focal deficits. Alert and oriented x3. DS: Data Data Completed and Pending Labs on day of discharge: Labs from last 24 hours 10/08/22 10/08/22 10/07/22 05:50 05:50 21:15 WBC 5.9 RBC
[2022-10-08] MEDS: CIPROFLOXACIN 400 MG/D5W 200ML 200 ML 200 MG IVPB (11:55)
--- NOTE | 2022-10-08 13:48 | PC.NURSE ---
Pt discharged to home. VSS. Pt and spouse instructed regarding pt ABX: Ciprofloxin and antiemetic Zofran. Pt instructed to continue to push fluids. If pt runs a temperature of 100 or higher, if the diarhea comes back then she needs to call her PCP or come trina to the ER. Pt verbalized understanding. Pt taken to family car in and assisted into the car.
--- NOTE | 2022-10-09 09:17 | PC.NURSE ---
Pt states she received and understood her discharge instructions. Pt also states everybody was so nice .
[2022-10-10 15:33] LABS: Glucose Point of Care 107 mg/dl (65-105)
== END 2022-10-08 13:40 | disposition home or self-care (01) ==
LOC: CHSED 22:52 → CHS2ND 10-08 06:36
PROVIDERS: Nurse Practitioner Family; Admitting Provider Internal Medicine; Emergency Provider Emergency Medicine; PCP Internal Medicine; Visit Provider Internal Medicine
DX: E86.0 Dehydration (principal); K52.9 Noninfective gastroenteritis and colitis, unspecified; M54.9 Dorsalgia, unspecified; G89.29 Other chronic pain; Z20.822 Contact with and (suspected) exposure to COVID-19; Z85.528 Personal history of other malignant neoplasm of kidney; Z90.49 Acquired absence of other specified parts of digestive tract; Z87.891 Personal history of nicotine dependence; N39.0 Urinary tract infection, site not specified
CPT/HCPCS: 36415; 71045; 74018; 80048; 80053; 81001; 82948; 83690; 84443; 85025; 85027; 87637; 96361; 96365; 96366; 96367; 96375; 96376; 97161; 97165; 99285; A9270; G0378; J0744; J2405; J3480; J7030

== ENCOUNTER 2022-10-23 13:20 | Outpatient (CLI) | payer MEDICARE, SELFPAY | END 2022-10-23 13:21 | disposition home or self-care (01) | LOC: CHSLAB 13:23 | PROVIDERS: PCP Internal Medicine; Visit Provider Specialist | DX: C44.622 Squamous cell carcinoma of skin of right upper limb, including shoulder (principal) | CPT/HCPCS: 88305 ==

== ENCOUNTER → 2023-01-18 08:31 | Outpatient (CLI) | payer MEDICARE, SELFPAY ==
--- NOTE | ~2023-01-18 | CT_ITS ---
EXAMINATION: CT abdomen wo/w con DATE: 01/18/2023 09:10 INDICATION: Cancer of kidney post partial left nephrectomy TECHNIQUE: Computed tomography (CT) of the abdomen was performed with 100 mL Omnipaque-350 intravenou s contrast. Automated exposure control and iterative reconstruction technique were employed. The dose -length product was 418.40 mGy-cm. COMPARISON: 01/18/2022 and 01/24/2017 FINDINGS: No interval change in a chronic elongated soft tissue density nodule extending peripherally from a pr ominent calcified granuloma in the right lower lobe with prior biopsy of the pulmonary nodule demonst rating focal chronic pneumonitis with no evidence of neoplasm. Heart size is normal. No pericardial o r pleural effusion. There are a few hepatic and larger and more numerous splenic calcifications also consistent with old granulomatous disease. There is chronic mild intra and extra hepatic biliary duct al dilation likely related to prior cholecystectomy with surgical clips at the gallbladder fossa. Figueroa creas and bilateral adrenal glands are normal. 1 mm nonobstructing stone at a lower pole calyx of the right kidney with adjacent mild chronic cortical scarring. More prominent scarring and suture line a t the inferior pole of the left kidney consistent with prior partial left nephrectomy for reported re nal cell carcinoma. No evident residual or recurrent disease. There is unchanged chronic mild bilater al hydronephrosis without hydroureter. Visualized portion of the bowels are unremarkable. No patholog ically enlarged abdominal lymphadenopathy. Surgical clips along the anterior left pelvic wall. Postop erative changes in the lower lumbar spine including L5 laminectomy, partial L4 laminectomy with L4-S1 posterior spinal fusion with bilateral vertical gregorio and pedicle screw fixation and L5-S1 anterior sp inal fusion with interbody bone graft cage. Bone graft harvest sites at the bilateral posterior iliac spines. IMPRESSION: 1. Postoperative change of prior left nephrectomy for reported renal cell carcinoma with no evident r esidual, recurrent or metastatic disease. 2. Nonobstructing 1 mm stone at the lower pole of the right kidney. 3. Chronic mild bilateral hydronephrosis without interval change dating back to 2016. 4. Chronic intra and extra hepatic biliary ductal dilation likely related to prior cholecystectomy. Reviewed, dictated and finalized at location B. IMPRESSION: 1. Postoperative change of prior left nephrectomy for reported renal cell carci noma with no evident residual, recurrent or metastatic disease. 2. Nonobstructing 1 mm stone at the lower pole of the right kidney. 3. Chronic mild bilateral hydronephrosis without interval change dating back to 2017. 4. Chronic intra and extra hepatic biliary ductal dilation likely related to pr ior cholecystectomy.
--- NOTE | ~2023-01-18 | XR_ITS ---
Clinical Indication: Renal cancer PA and lateral views of the chest: Comparison: 10/08/2022 Findings: Stable calcified pulmonary nodules are present. No other pulmonary nodule or abnormality se en.. Cardiomediastinal silhouette is within normal limits. Osseous structures are intact. Calcified granulomas of the spleen noted. Impression: Evidence of prior granulomatous disease. No other significant findings. Reviewed, dictated and finalized at location . Impression: Evidence of prior granulomatous disease. No other significant findings.
[2023-01-18 08:57] LABS: Estimated Glomerular Filt Rate > 60
== END ==
PROVIDERS: PCP Internal Medicine; Visit Provider Urology
DX: C64.9 Malignant neoplasm of unspecified kidney, except renal pelvis (principal); N20.0 Calculus of kidney
CPT/HCPCS: 71046; 74170; Q9967

== ENCOUNTER 2023-11-15 13:31 | Outpatient (RCR) | payer MEDICARE, SELFPAY ==
--- NOTE | 2023-11-15 15:11 | OPREHPOC ---
Outpatient Therapy Plan of Care This is a Multidisciplinary Plan of Care that may contain components documented by all disciplines (PT, OT, and ST.) PT Problem 1 PT Problem #1 Knowledge Deficit PT Goal 1 Goal Patient to demonstrate independence with HEP Target Visit 2 PT Problem 2 PT Problem #2 Pain PT Goal 1 Goal 1. Patient to report highest pain at 2/10 2. patient to report ability to complete house hold tasks with no increase in pain Target Visit 9 PT Problem 3 PT Problem #3 Impaired Range of Motion PT Goal 1 Goal 1. Patient to demonstrate 60 deg of B cervical ROM to return to driving without limitation 2. Patient to demonstrate 160 deg of B shoulder flexion to return to reaching into cabinets at PLOF Target Visit 9 PT Problem 4 PT Problem #4 Impaired Strength PT Goal 1 Goal patient to demonstrate 4+/5 B UE strength to return to house hold tasks at PLOF Target Visit 9 PT Problem 5 PT Problem #5 Impaired Functional Mobil PT Goal 1 Goal 1. Patient to report ability to read for >30 min with no increase in neck pain 2. Patient to demonstrate less than 20% disability on NDI 3. Patient to report ability to sit for >1 hour with no neck pain Target Visit 9
--- NOTE | 2023-11-15 15:11 | PTOPEVAL1 ---
Assessment and note entered by Tomeka Osborne DPT Evaluation Information Assessment Status Evaluation Diagnosis neck pain, B shoulder pain, upper back pain Subjective Information patient reports that she has had chronic pain in the neck, shoulders and upper back that has worsened over the last month. She reports that prior ice and heat would decrease pain but that is not helping now. She reports pain is present while sitting, turning her head to driving, lifting her UE's, and looking down to read. She denies headaches or numbness. Patient is retired. She is getting an x-ray following PT evaluation today. Reported Pain Level Pain Score 5,4,5: Self Report Assessment PT Clinical Summary Mrs. Munoz is a 73 year old female who presents to PT with neck, B shoulder and mid back pain. She demonstrates decreased cervical ROM, decreased UE strength and ROM and impaired posture limiting her ability to read, turn her head to drive and sit for prolonged periods of time. She would benefit from skilled PT to address impairments and return to PLOF. Plan of Care Interventions Electrical Stimulation,Gait Training,Hot Pack/Cold Pack,Manual Therapy,Mechanical Traction,Neuro Re- education,Patient/Caregiver Educati,Therapeutic Activities,Therapeutic Exercise PT Services Indicated Yes Treatment Frequency and 3x weekly for 9 visits Duration These treatments will address the objective and functional deficits as defined above. The patient will be advanced safely and appropriately in order for the patient to progress towards his/her prior level of function. Additional exercises will be introduced and as well as a comprehensive home exercise program upon discharge, if needed, ?to ensure carryover of functional gains achieved in the clinic. This treatment plan has been reviewed and agreement upon by the patient.
--- NOTE | 2023-12-09 13:35 | OPREHPOC ---
Outpatient Therapy Plan of Care This is a Multidisciplinary Plan of Care that may contain components documented by all disciplines (PT, OT, and ST.) PT Problem 1 PT Problem #1 Knowledge Deficit PT Goal 1 Goal Patient to demonstrate independence with HEP Target Visit 2 Progress Met PT Problem 2 PT Problem #2 Pain PT Goal 1 Goal 1. Patient to report highest pain at 2/10 2. patient to report ability to complete house hold tasks with no increase in pain Target Visit 9 Progress Not Met PT Problem 3 PT Problem #3 Impaired Range of Motion PT Goal 1 Goal 1. Patient to demonstrate 60 deg of B cervical ROM to return to driving without limitation 2. Patient to demonstrate 160 deg of B shoulder flexion to return to reaching into cabinets at PLOF Target Visit 9 Progress Not Met PT Problem 4 PT Problem #4 Impaired Strength PT Goal 1 Goal patient to demonstrate 4+/5 B UE strength to return to house hold tasks at PLOF Target Visit 9 Progress Not Met PT Problem 5 PT Problem #5 Impaired Functional Mobil PT Goal 1 Goal 1. Patient to report ability to read for >30 min with no increase in neck pain 2. Patient to demonstrate less than 20% disability on NDI 3. Patient to report ability to sit for >1 hour with no neck pain Target Visit 9 Progress Not Met
--- NOTE | 2023-12-09 13:35 | PTOPDC ---
Assessment and note entered by Tomeka Leger DPT Evaluation Information Assessment Status Discharge Diagnosis neck pain, B shoulder pain, upper back pain Onset 11/11/23 Subjective Information patient reports that her neck pain has improved since start of PT. she reports she is now able to turn her head when driving. she reports that lifting her arms above her head has improved. She continues to have difficulty with looking down to read. she reports she has been doing her HEP. she did have an MRI on 12/07/23. Reported Pain Level Pain Score 3,2,3: Self Report Assessment PT Clinical Summary Mrs. Munoz was seen for 9 visits of skilled PT with good progression towards goals. She did not meet all goals but did demonstrate improved cervical ROM, improve UE strength and improved UE ROM with improved ability to drive and complete house hold tasks. She is independent with HEP and is agreeable to DC at this time. Plan of Care PT Services Indicated No
== END 2023-12-09 13:44 | disposition home or self-care (01) ==
LOC: CHSPT 13:31
PROVIDERS: PCP Family Medicine; Visit Provider Registered Nurse
DX: M54.2 Cervicalgia (principal)
CPT/HCPCS: 97014; 97110; 97140; 97150; 97161; G0283

== ENCOUNTER 2023-11-15 15:06 | Outpatient (CLI) | payer MEDICARE, SELFPAY ==
--- NOTE | ~2023-11-15 | XR_ITS ---
EXAMINATION: XR thoracic spine 3V DATE: 11/15/2023 15:32 INDICATION: Back pain. TECHNIQUE: 3 views of thoracic spine on 4 radiographs were obtained. COMPARISON: Chest 2 views 01/18/2023 FINDINGS: There is 5 degrees dextrocurvature of thoracic spine. Vertebral body heights are normal. Th ere is mildly decreased disc height at multiple levels. There are endplate osteophytes at many levels . Calcified pulmonary nodules and splenic calcifications are consistent with old granulomatous diseas e. IMPRESSION: 1. Mild thoracic spondylosis. Reviewed, dictated and finalized at location A. NING STAFF SUPERVISOR
--- NOTE | ~2023-11-15 | XR_ITS ---
EXAMINATION: XR_CERV2-3V_CR DATE: 11/15/2023 15:32 INDICATION: Acute neck pain. TECHNIQUE: 4 views of cervical spine on 5 radiographs were obtained. COMPARISON: None. FINDINGS: There is kyphosis of cervical spine. There is 2 mm retrolisthesis of C4 on C5, C5 on C6, an d C6 on C7. There is mild chronic anterior wedging of C6 vertebral body. There is moderately decrease d disc height at C3-C4 and C4-C5 and severely decreased disc height at C5-C6 and C6-C7. There is mult ilevel uncovertebral joint osteoarthritis, severe bilaterally from C4-C5 through C6-C7. There is mult ilevel facet joint osteoarthritis, severe at several levels. There is mild central canal stenosis at C4-C5, C5-C6, and C6-C7. No prevertebral soft tissue swelling. IMPRESSION: 1. Severe cervical spondylosis. Reviewed, dictated and finalized at location A. E M ASSEMBLER
== END 2023-11-15 15:07 | disposition home or self-care (01) ==
LOC: CHSIMG 15:09
PROVIDERS: PCP Family Medicine; Visit Provider Family Medicine
DX: M54.6 Pain in thoracic spine (principal); M54.2 Cervicalgia; M43.02 Spondylolysis, cervical region; M43.04 Spondylolysis, thoracic region
CPT/HCPCS: 72040; 72072

== ENCOUNTER 2023-12-07 08:18 | Outpatient (CLI) | payer MEDICARE, SELFPAY ==
--- NOTE | ~2023-12-07 | MR_ITS ---
EXAMINATION: MR cervical spine wo con DATE: 12/07/2023 10:40 INDICATION: Cervical spondylosis. TECHNIQUE: Magnetic resonance imaging (MRI) of the cervical spine was performed without intravenous c ontrast. Sequences included sagittal T2-weighted FSE, sagittal T2-weighted FS FSE, sagittal T1-weight ed FSE, axial MERGE, and axial T2-weighted FSE. COMPARISON: Cervical spine radiographs 11/15/2023 FINDINGS: There is kyphosis of cervical spine. There is mild chronic anterior wedging of C5, C6, and C7 vertebral bodies. There is moderately decreased disc height at C3-C4 and C4-C5 and severely decrea sed disc height at C5-C6 and C6-C7. The spinal cord signal intensity is normal. There is an empty porfirio la. The following disc levels are specifically discussed: C2-C3: The disc does not extend beyond the endplate margin. There is no uncovertebral joint osteoarth ritis. There is mild right facet joint osteoarthritis. There is ankylosis of left facet joint with mi ld hypertrophy. There is mild left neural foraminal stenosis. There is no central canal stenosis. C3-C4: The disc does not extend beyond the endplate margin. There is mild bilateral uncovertebral walter nt osteoarthritis. There is mild right facet joint osteoarthritis. There is ankylosis of left facet j oint with mild hypertrophy. There is mild left neural foraminal stenosis. There is no central canal s tenosis. C4-C5: The disc is bulging. There is moderate right and severe left uncovertebral joint osteoarthriti s. There is mild right and moderate left facet joint osteoarthritis. There is mild left neural forami nal stenosis. There is mild central canal stenosis with ventral indentation of the spinal cord. C5-C6: The disc is bulging. There is severe bilateral uncovertebral joint osteoarthritis. There is mi ld bilateral facet joint osteoarthritis. There is mild bilateral neural foraminal stenosis. There is mild central canal stenosis with ventral indentation of the spinal cord. C6-C7: The disc is bulging. There is severe bilateral uncovertebral joint osteoarthritis. There is mi ld bilateral facet joint osteoarthritis. There is moderate bilateral neural foraminal stenosis. There is mild central canal stenosis with ventral indentation of the spinal cord. C7-T1: There is a central protrusion. There is mild left uncovertebral joint osteoarthritis. There is severe bilateral facet joint osteoarthritis. There is mild bilateral neural foraminal stenosis. Ther e is no central canal stenosis. IMPRESSION: 1. Severe cervical spondylosis. Reviewed, dictated and finalized at location E.
== END 2023-12-07 08:19 | disposition home or self-care (01) ==
LOC: CHSIMG 08:21
PROVIDERS: PCP Family Medicine; Visit Provider Family Medicine
DX: M47.812 Spondylosis without myelopathy or radiculopathy, cervical region (principal)
CPT/HCPCS: 72141

== ENCOUNTER 2024-01-30 09:16 | Outpatient (CLI) | payer MEDICARE, SELFPAY ==
--- NOTE | ~2024-01-30 | XR_ITS ---
Clinical Indication: Renal mass, annual checkup PA and lateral views of the chest: Comparison: 01/18/2023 Findings: Stable calcified granulomas are present. The lungs are otherwise clear, without evidence of focal consolidation or pleural effusion. Cardiomediastinal silhouette is within normal limits. Bone s and soft tissues are unremarkable. Impression: No evidence of metastatic disease. Stable calcified granulomas. Reviewed, dictated and finalized at location M. Impression: No evidence of metastatic disease. Stable calcified granulomas.
--- NOTE | ~2024-01-30 | CT_ITS ---
CT of the Abdomen and Pelvis: Indication: Renal mass Technique: 2.5 mm axial scans were obtained through the abdomen and pelvis prior to and following in travenous administration of 100 cc of Omnipaque 350. Dose reduction technique was used on this scan b y utilizing automated exposure control and iterative reconstruction technique. The dose-length produc t (DLP) was 659.49 mGy-cm. COMPARISON: 01/18/2023 Findings: Scans through the lung bases demonstrates stable calcified right basilar granuloma. The liver, pancreas, and adrenal glands are within normal limits. Splenic calcified granulomas are pr esent. Gallbladder absent. Punctate nonobstructing right renal stone present. Bilateral extra renal p elves present. Stable postoperative change at the lower pole left kidney, without evidence for recurr ent mass lesion. There are atherosclerotic calcifications of the aorta. No lymphadenopathy. No bowel obstruction or bowel wall thickening. There is no evidence to suggest acute appendicitis. Images through the pelvis were performed. Urinary bladder unremarkable. No pelvic mass seen. No ascit es. Impression: Stable postoperative change lower pole left kidney. No evidence for recurrent malignancy or metastati c disease. Punctate nonobstructing right renal stone. Reviewed, dictated and finalized at location M. Impression: Stable postoperative change lower pole left kidney. No evidence for recurrent m alignancy or metastatic disease. Punctate nonobstructing right renal stone.
[2024-01-30 09:57] LABS: Estimated Glomerular Filt Rate > 60
== END 2024-01-30 09:17 | disposition home or self-care (01) ==
PROVIDERS: PCP Family Medicine; Visit Provider Urology
DX: N28.89 Other specified disorders of kidney and ureter (principal); N20.0 Calculus of kidney
CPT/HCPCS: 71046; 74178; Q9967